=== PATIENT | male | born 1980 | race Caucasian/White ===

== ENCOUNTER 2017-03-06 13:28 | Emergency (ER) | payer MEDICAID ==
[~2017-03-06 13:28] MED LIST: CLINDAMYCIN HC300 MG PO; LAC PO; METHADONE HCL10 MG PO; NORCO1 TA2 PO
== END 2017-03-06 14:14 | disposition left against medical advice (07) ==
LOC: ED 13:28
DX: Z53.21 Procedure and treatment not carried out due to patient leaving prior to being seen by health care provider (principal)

== ENCOUNTER 2018-07-22 18:17 | Emergency (ER) | payer MEDICAID ==
[~2018-07-22] VITALS: Ht 172.7 cm; Wt 72.1 kg
[2018-07-22 18:28] VITALS: Ht 172.7 cm; Wt 72.1 kg
[2018-07-22 19:52] VITALS: BP 143/96
== END 2018-07-22 19:52 | disposition home or self-care (01) ==
LOC: ED 18:17
DX: H72.92 Unspecified perforation of tympanic membrane, left ear (principal); F10.10 Alcohol abuse, uncomplicated

== ENCOUNTER 2020-09-17 18:59 | Emergency (ER) | payer MEDICAID ==
[~2020-09-17] VITALS: Ht 172.7 cm; Wt 74.8 kg
[2020-09-17 19:06] VITALS: Ht 172.7 cm; Wt 74.8 kg
[2020-09-17 20:28] LABS: BASOPHIL % 1.6 % (0-2); PLATELET COUNT 187 x10^3mcL (130-400)
[2020-09-17 20:31] LABS: RED CELL DISTRIBUTION WIDTH 17.7 % (11.5-14.5)
[2020-09-17 20:35] VITALS: BP 97/62
[2020-09-17 20:39] LABS: CALCIUM 8.8 mg/dL (8.5-10.1); CARBON DIOXIDE 21.3 mmol/L (21-32); CHLORIDE SERUM 103 mmol/L (98-107); CREATININE SERUM 0.9 mg/dL (0.7-1.3); GFR1 > 60 mL/min; GLUCOSE SERUM 95 mg/dL (74-106); POTASSIUM SERUM 4.8 mmol/L (3.5-5.1); SODIUM SERUM 135 mmol/L (136-145)
[2020-09-17 20:44] LABS: ALKALINE PHOSPHATASE 90 U/L (46-116); ALT/SGPT 34 U/L (16-63); AST/SGOT 88 U/L (15-37); BILIRUBIN TOTAL 0.72 mg/dL (0.20-1.00)
[2020-09-17 20:58] LABS: ALBUMIN 2.9 g/dL (3.4-5.0); TOTAL PROTEIN, SERUM 8.6 g/dL (6.4-8.2)
== END 2020-09-17 20:35 | disposition left against medical advice (07) ==
LOC: ED 18:59
PROVIDERS: Emergency Medicine
DX: T40.1X1A Poisoning by heroin, accidental (unintentional), initial encounter (principal); F19.10 Other psychoactive substance abuse, uncomplicated; F17.210 Nicotine dependence, cigarettes, uncomplicated; Y92.89 Other specified places as the place of occurrence of the external cause
CPT/HCPCS: J2310; J7030

== ENCOUNTER 2020-12-18 17:38 | Emergency (ER) | payer MEDICAID | END 2020-12-18 18:42 | disposition left against medical advice (07) | LOC: ED 17:38 | DX: Z53.21 Procedure and treatment not carried out due to patient leaving prior to being seen by health care provider (principal) ==